=== PATIENT | female | born 1950 | race Caucasian/White ===

== ENCOUNTER 2017-01-05 07:59 | Outpatient (CLI) | payer MEDICARE, OTHER ==
[~2017-01-05] VITALS: Ht 167.6 cm; Wt 126.5 kg
--- NOTE | ~2017-01-05 | CATH ---
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 Interventional Recommendations DAPT for 1 year Procedure Description The patient was brought to the diagnostic cardiac catheterization-EP laboratory in the fasting, non-sedated state. Informed consent was obtained in the written and verbal form after the risks and benefits were explained. The patient had no further questions and agreed to proceed. The planned puncture-incision site(s) were shaved and prepped with ChloraPrep and draped in the usual sterile manner. Conscious sedation, supplemental oxygen, and pain control medications were delivered by a registered nurse under physician guidance. Surface ECG rhythm, blood pressure measurement, and pulse oximetry were monitored throughout the procedure. Arterial access. The access site was infiltrated with lidocaine. The vessel was entered with the Seldinger technique. A sheath was advanced into the vessel and used for catheter placement. Selective left coronary angiography. A catheter was advanced into the left coronary vessel ostium under Fluoroscopic guidance. Contrast was injected by hand. Images were obtained in multiple projections. Selective right coronary angiography. A catheter was advanced into the right coronary vessel ostium under fluoroscopic guidance. Contrast was injected by hand. Images were obtained in multiple projections. Left heart catheterization. A catheter was advanced across the aortic valve to the left ventricle under fluoroscopic guidance. Resting hemodynamics were obtained. Angioplasty and Stent Placement: A guiding catheter was used to intubate the vessel. A 0.14 wire was then used to cross the lesion. A balloon catheter was placed across the lesion and inflated. The balloon catheter was then removed. A Drug Eluting Stent was placed and inflated. Post placement angiograms were performed. Arterial artery hemostasis was achieved. The patient was transferred to a regular nursing floor via cart accompanied by a nurse. The patient left the laboratory in stable condition. Diagnostic Cath Status: Elective Interventional Cath Status: Elective Procedure Procedure Type Diagnostic procedure:Angiography:, Coronary Angios w/[facility] PCI procedure:Drug Eluting Coronary Stent:, LAD Indications: Unstable angina and Shortness of breath w/exertion. The procedure was explained in detail to the patient. Risks, complications and alternative treatments were reviewed. Written consent was obtained. Medications Reviewed with Patient prior to Procedure. Angiographic Findings Dominance: Left Cardiac Arteries and Lesion Findings LMCA: Normal (0% Stenosis).Large LAD: Diffuse irregularity.Proximal LAD is medium caliber. Diagonal 1 is medium and normal Lesion on Dist LAD: Proximal subsection.85% stenosis 28 mm length reduced to 0%. Pre procedure RUTH II flow was noted. Post Procedure RUTH III flow was present. The guidewire cross was successful.The lesion was diagnosed as a moderate risk lesion.Culprit lesion. Devices used - Stemgent Wire .014 x 180. Number of passes: 1. - Emerge Balloon 2.0 x 20. 2 inflation(s) to a max pressure of: 7 naima. - Promus Premier 2.25 x 28 Stent. 1 inflation(s) to a max pressure of: 11 naima. LCx: Normal (0% Stenosis).Dominant and large. OM 1 is small, OM 2 is large and normal RCA: Normal (0% Stenosis).Medium Coronary Tree Procedure Data Procedure Date Date: 01/05/2017Start: 10:50 AMEnd: 11:37 AM Entry Locations - Retrograde Percutaneous access was performed through the Right Femoral artery (Primary location). A 6 Fr sheath was inserted. Hemostasis was successfully obtained using Angio-Seal STS PLUS ([facility]). Closure Comments: Deployed by Gretta ORELLANA. Procedure Medications Order and Administration + + + + + !Time !Medication !Dosage !Route ! + + + + + !01/05/2017 10:49 !Fentanyl !50 mcg !I.V. ! !AM ! ! ! ! + + + + + !01/05/2017 10:51 !Versed !1 mg !I.V. ! !AM ! ! ! ! + + + + + !01/05/2017 11:07 !Angiomax (Bivalirudin) !95 mg !I.V. bolus ! !AM !(ACC_5) ! ! ! + + + + + !01/05/2017 11:07 !Nipride !50 mcg !I.C. ! !AM ! ! ! ! + + + + + !01/05/2017 11:09 !Angiomax (Bivalirudin) !1.75 mg/kg/hr!I.V. drip ! !AM !(ACC_5) ! ! ! + + + + + !01/05/2017 11:12 !Nipride !60 mcg !I.C. ! !AM ! ! ! ! + + + + + !01/05/2017 11:21 !Nipride !65 mcg !I.C. ! !AM ! ! ! ! + + + + + !01/05/2017 11:22 !Brilinta (Ticagrelor) !180 mg !P.O. ! !AM !(ACC_20) ! ! ! + + + + + !01/05/2017 11:02 !Oxygen !2 l/min !NC ! !AM ! ! ! ! + + + + + !01/05/2017 11:24 !Angiomax (Bivalirudin) ! !I.V. drip ! !AM !(ACC_5) ! ! ! + + + + + !01/05/2017 11:25 !Nitroglycerin !5 mcg/min !I.V. drip ! !AM ! ! ! ! + + + + + !01/05/2017 11:31 !Oxygen ! !NC ! !AM ! ! ! ! + + + + + !01/05/2017 11:33 !Nitroglycerin !10 mcg/min !I.V. drip ! !AM ! ! ! ! + + + + + Devices Used - A6 Fr. BS JL 4 Diag. Catheterwas used for:Left coronary angiography. - A6 Fr. BS JR 4 Diag. Catheterwas used for:Right coronary angiography. - A6 Fr. BS Angled Pigtail Diag. Catheterwas used for:LV Pressures. - A6 Fr. XB 3.5 Guide Catheterwas used for:LAD Intervention. Contrast Material - Isovue [id number] ml Fluoroscopy Time: Diagnostic: 11:36 minutes. Total: 11:36 minutes. Fluoroscopy Dose: Diagnostic: 2505 mGy. Total: 2505 mGy. Estimated Blood Loss: 5.[address] [facility] PCI Information PCI Indication:PCI for high risk Non-STEMI or unstable angina. Medical History Performed Procedures and Imaging Results - Stress testing with SPECT MPIwas performed. Results were: Positive. Allergies - Other:(PCN, D5W, D10W, Sulfamethoxazole, PCN G, Dextrose iso-osmotic). Risk Factors The patient risk factors include:hypertension, orally-treated diabetes mellitus, last creatinine: 0.9 mg/dl and creatinine clearance: 121.92 ml/min. Admission Data Admission Date: 01/05/2017 Admission Time: 07:59 AM Admit Source: Other Insurance Payors: Medicare. Admission Medications + +------+------+ + + + + !Medication !Dosage!Times !Last !Last !Administered !Comments ! ! ! !Per !Delivery !Delivery ! ! ! ! ! !Day !Date !Time ! ! ! + +------+------+ + + + + !Aspirin ! ! ! ! !Yes ! ! !(any) ! ! ! ! ! ! ! + +------+------+ + + + + !ARB (any) ! ! ! ! !Yes ! ! + +------+------+ + + + + !Beta ! ! ! ! !Yes ! ! !Fang ! ! ! ! ! ! ! !(any) ! ! ! ! ! ! ! + +------+------+ + + + + !Statin ! ! ! ! !Yes ! ! !(any) ! ! ! ! ! ! ! + +------+------+ + + + + Clinical Evaluation Leading to Procedure - The patient's CAD presentation was assessed as: Unstable angina. - The patient's anginal syndrome during the past two weeks was assessed as: Class III according to the [place] Cardiovascular Society Classification System (CCS). Anti-anginal medications were prescribed during the past two weeks. The medication is: Beta Blockers. Hemodynamics Condition: Rest O2 Consumption: Estimated: 210.58Heart Rate: 66 bpm Pressures (mmHg) +-----+ + !Site !Pressure ! +-----+ + !AO !133/74 (99) ! +-----+ + !LV !149/7 ,19 ! +-----+ + !LV !144/8 ,20 ! +-----+ + !AO !145/76 (106) ! +-----+ + !LV !144/8 ,20 ! +-----+ + Valve Gradients and Areas + +---------+---------+---------+ +---------+ + !Valve !Peak !Mean !Area !Index !Flow !Source ! + +---------+---------+---------+ +---------+ + !Aortic !0 !0 ! ! ! ! ! + +---------+---------+---------+ +---------+ + !Aortic !0 !0 ! ! ! ! ! + +---------+---------+---------+ +---------+ + Shunts Oxygen Values O2 Capacity 150.96 O2 Consumption 210.58 Discharge Data Discharge Date: 01/06/2017 Hospital Status: Outpatient Signatures dtt: Cory Carr (cardio) dtd: 01/05/17 1050 Physician Self Edit
[~2017-01-05 07:59] MED LIST: ACTOS45 MG PO; ASPIRIN LO-DOSE81 MG PO; BENADRYL25 MG PO; CONZIP100 MG PO; COZAAR50 MG PO; CYMBALTA60 MG PO; DICLOFENAC SODI50 MG PO; DRISDOL 5050000 UNIT PO; GLUCOTROL 5MG XL5 MG PO; IMITREX50 MG PO; INDERAL XL80 MG PO; LEVOTHROID(SYN75 MCG PO; METFORMIN HCL1000 M2 PO; MUCINEX DM ER1 EAC1 PO; NEURONTIN600 MG PO; SEROQUEL200 MG PO; SLOW-MAG (64 MG1 TAB PO; ZANTAC300 MG PO; ZYRTEC10 MG PO
[2017-01-05] MEDS ORDERED: LIPITOR20 M1 PO (08:36)
--- NOTE | 2017-01-05 17:00 | NUR ---
Significant Event: pt still has had chest/arm discomfort, nitro increase to 25mcg, morphine given 2 times which helps most. Pt has migraine also, so immitrex and ultram given. Pt amb to bathroom ok. R)groin soft and c/d/i. Pt family here with her. Follow up:
[2017-01-06 03:58] LABS: BASOPHIL # 0.1 K/uL (0.0-0.2); BASOPHIL % 0.7 %; EOSINOPHIL # 0.9 K/uL (0.0-0.5); EOSINOPHIL % 7.7 %; HEMATOCRIT 30.6 % (33.0-46.0); HEMOGLOBIN 9.4 g/dL (10.0-15.0); IMMATURE GRANULOCYTE % 0.3 %; LYMPHOCYTE # 2.8 K/uL (0.8-4.0); LYMPHOCYTE % 25.2 %; MCH 26.8 pg (27.0-34.0); MCHC 30.7 gm/dL (32.0-36.5); MCV 87.2 fl (83.0-98.0); MONOCYTE # 0.9 K/uL (0.0-1.0); MONOCYTE % 8.1 %; MPV 10.2 fl (9.4-12.4); NEUTROPHIL # (ANC) 6.4 K/uL (1.8-7.8); NRBC % 0 /100WBC (0-0.00); PLATELET COUNT 234 K/uL (150-450); RBC 3.51 M/uL (3.50-5.50); WBC 11.1 K/uL (4.0-11.0)
[2017-01-06 04:15] LABS: ALK PHOS 60 IU/L (33-138); ALT 28 IU/L (12-78); ANION GAP 12.8 (10.0-19.0); AST 26 IU/L (10-40); BLOOD UREA NITROGEN 17 mg/dL (6-24); CALCIUM 8.3 mg/dL (8.5-10.5); CHLORIDE 109 mMol/L (96-110); CO2 22 mMol/L (22-32); CREATININE 0.9 mg/dL (0.5-1.1); ESTIMATED GFR (MDRD EQUATION) > 60; POTASSIUM 3.8 mMol/L (3.7-5.1); SODIUM 140 mMol/L (135-145); TOTAL BILIRUBIN 0.4 mg/dL (0.0-1.5); TOTAL PROTEIN 6.1 g/dL (6.0-8.4)
--- NOTE | 2017-01-06 05:30 | NUR ---
Significant Event: CONTINUES TO C/O OFF/ON CP ALL NIGHT WELL A HEAD ACHE. TYLENOL GIVEN X2 AND MORPHINE 2MG X3. BOTH WERE LAST GIVEN AT 0424. SOME RELIEF NOTED WITH PAIN MEDS. NITRO ALSO INCREASED TO 30 MCG/MIN. PT ALSO STATED SHE STILL FEELS SOB WITH ACTIVITY AND SOME AT REST. 2L O2 WAS APPLIED AND SHE SAID THIS HELPS SOME. GETS UP WITH MINIMAL ASSIST TO BR. GROIN REMAINS SOFT WITHOUT BRUISING AND VERY LITTLE DRAINAGE. Follow up:
--- NOTE | 2017-01-06 11:38 | NUR ---
I did place free 30- day Brilinta card on the chart.
--- NOTE | 2017-01-06 12:08 | NUR ---
Introduced self and role of care management to pt and daughter. She is planning home today and denies needs. She lives with and cares for her 90 year old mother. She does have friends and family around to help if needed.
[2017-01-06] MEDS ORDERED: BRILINTA90 MG PO (12:19)
--- NOTE | 2017-01-06 14:11 | NUR ---
Significant Event: PT A&O x3. VSS. Nitro dc'd and norvasc given. PT amulated in [place] x2, up ad steven in room. Showered this shift. PT c/o headache, tylenol, immitrex and ultram given. PT states chest pain better after norvasc and GI cocktail. IV dc'd. Dismissal instructions/prescriptions given to PT/daughter, voiced understanding. PT wheeled to lobby and dismissed to home. Follow up:
== END 2017-01-06 14:25 | disposition disaster alternative care site (69) ==
LOC: GPCU 07:59 → GPOC 07:59 → GPCU 11:26 → GPOC 01-06 14:25
PROVIDERS: Internal Medicine Interventional Cardiology
PROC: 027034Z Dilation of Coronary Artery, One Artery with Drug-eluting Intraluminal Device, Percutaneous Approach (ICD-10-PCS; principal; 2017-01-05)
PROC: B2111ZZ Fluoroscopy of Multiple Coronary Arteries using Low Osmolar Contrast (ICD-10-PCS; principal; 2017-01-05)
PROC: 4A023N7 Measurement of Cardiac Sampling and Pressure, Left Heart, Percutaneous Approach (ICD-10-PCS; principal; 2017-01-05)
DX: I25.110 Atherosclerotic heart disease of native coronary artery with unstable angina pectoris (principal); E11.9 Type 2 diabetes mellitus without complications; I10 Essential (primary) hypertension; G43.909 Migraine, unspecified, not intractable, without status migrainosus; E03.9 Hypothyroidism, unspecified; E78.1 Pure hyperglyceridemia; E78.5 Hyperlipidemia, unspecified; H40.009 Preglaucoma, unspecified, unspecified eye; Z82.41 Family history of sudden cardiac death; Z79.84 Long term (current) use of oral hypoglycemic drugs; Z79.82 Long term (current) use of aspirin; Z79.891 Long term (current) use of opiate analgesic; Z79.899 Other long term (current) drug therapy
CPT/HCPCS: C1725; C1760; C1769; C1874; C1887; C9600; J0583; J1644; J2001; J2250; J2270; J3010; J7030; J7050